=== PATIENT | male | born 1995 | race American Indian/Alaskan Native ===

== ENCOUNTER 2016-08-17 18:22 | Emergency (ER) | payer SELFPAY ==
[2016-08-17 20:00] VITALS: BP 137/76
--- NOTE | 2016-08-18 04:35 | XRay Report ---
FINAL REPORT PROCEDURE: XR ANKLE 2V LT TECHNIQUE: LEFT ankle radiographs, AP and lateral views. HISTORY: LEFT ANKLE PAIN COMPARISON: No prior studies are available for comparison. FINDINGS: Fracture (s) and/or Dislocation(s): None. Alignment: Normal. Joint space(s): Normal. Soft tissues: Normal. Bone mineralization: Normal. Foreign bodies: Normal. Calcaneal spurring: Normal. IMPRESSION: Normal Examination .
[2016-08-18] MEDS ORDERED: NORCO 5/325 PO ONE (06:00)
--- NOTE | 2016-08-18 06:01 | Emergency Department Report ---
ED Lower Extremity HPI - General Chief Complaint: Extremity Injury, Lower Stated Complaint: BROKEN ANKLE Source: patient Mode of arrival: Wheelchair Limitations: No Limitations - History of Present Illness Initial Comments: 21-year-old male past medical history none presents with complaint of left ankle and foot pain. Patient states that yesterday on August 16 he stepped awkwardly on his left ankle, inversion injury as per patient. Denies any other injuries. States that his left ankle and foot have become swollen since. Visible Swelling at distal left ankle. Complaint: ankle injury, foot injury Onset/Timin -: days(s) Injury: Ankle: Left (left ankle pain and swelling) Type of Injury: inversion Severity: moderate Severity scale (0 -10): 5 Associated Symptoms: swelling, able to partially bear weight - Related Data Previous Rx's Medication Instructions Recorded Last Taken Type Naproxen [Naprosyn] 500 mg PO BID PRN #20 tablet 08/18/16 Unknown Rx Allergies Allergy/AdvReac Type Severity Reaction Status Date / Time Iodine and Iodide Containing Allergy Angioedema Verified 08/17/16 19:54 Produc shellfish derived Allergy Angioedema Verified 08/17/16 19:54 ED Review of Systems ROS: Stated complaint: BROKEN ANKLE Other details as noted in HPI Constitutional: denies: chills, fever Eyes: denies: eye pain, eye discharge, vision change ENT: denies: ear pain, throat pain Respiratory: denies: cough, shortness of breath, wheezing Cardiovascular: denies: chest pain, palpitations Endocrine: no symptoms reported Gastrointestinal: denies: abdominal pain, nausea, diarrhea Genitourinary: denies: urgency, dysuria Musculoskeletal: denies: back pain, joint swelling, arthralgia Skin: denies: rash, lesions Neurological: denies: headache, weakness, paresthesias Psychiatric: denies: anxiety, depression Hematological/Lymphatic: denies: easy bleeding, easy bruising ED Past Medical Hx - Past Medical History Previous Medical History?: No - Surgical History Past Surgical History?: No - Social History Smoking Status: Current Every Day Smoker Substance Use Type: None - Medications Home Medications: Home Medications Medication Instructions Recorded Confirmed Last Taken Type Naproxen [Naprosyn] 500 mg PO BID PRN #20 tablet 08/18/16 Unknown Rx ED Physical Exam - General Limitations: No Limitations General appearance: alert, in no apparent distress - Head Head exam: Present: atraumatic, normocephalic - Eye Eye exam: Present: normal appearance, PERRL, EOMI - ENT ENT exam: Present: mucous membranes moist - Neck Neck exam: Present: normal inspection - Respiratory Respiratory exam: Present: normal lung sounds bilaterally. Absent: respiratory distress - Cardiovascular Cardiovascular Exam: Present: regular rate, normal rhythm. Absent: systolic murmur, diastolic murmur, rubs, gallop - GI/Abdominal GI/Abdominal exam: Present: soft, normal bowel sounds - Rectal Rectal exam: Present: deferred - Extremities Exam Extremities exam: Present: normal inspection - Expanded Lower Extremity Exam Left Upper Leg exam: Present: normal inspection, full ROM Knee exam: Present: normal inspection, full ROM Lower Leg exam: Present: normal inspection, full ROM Ankle exam: Present: normal inspection, full ROM (ankle flexion and extension intact), tenderness (tenderness to palpation medial malleolus left ankle), swelling (swelling anterior ankle) Foot/Toe exam: Present: normal inspection, full ROM, tenderness (tenderness on the dorsal aspect of foot) Neuro vascular tendon exam: Present: no vascular compromise Gait: Positive: antalgic 1 - Swelling here - Back Exam Back exam: Present: normal inspection - Neurological Exam Neurological exam: Present: alert, oriented X3, CN II-XII intact, abnormal gait (antalgic gait) - Psychiatric Psychiatric exam: Present: normal affect, normal mood - Skin Skin exam: Present: warm, dry, intact, normal color. Absent: rash ED Course Vital Signs 08/17/16 19:55 Temperature 98.8 F Pulse Rate 80 Respiratory 20 Rate Blood Pressure 137/76 O2 Sat by Pulse 100 Oximetry ED Lower Extremity MDM - Medical Decision Making A/P: Left ankle/foot sprain 1-x-rays of ankle and foot show no fractures 2-naproxen when necessary 3-follow-up with orthopedics 4- ankle air stirrup splint, Matti wraps, RCE therapy, crutches, weight bearing as tolerated Critical care attestation.: If time is entered above; I have spent that time in minutes in the direct care of this critically ill patient, excluding procedure time. ED Disposition Clinical Impression: Ankle sprain Qualifiers: Encounter type: initial encounter Involved ligament of ankle: tibiofibular ligament Laterality: left Qualified Code(s): S93.432A - Sprain of tibiofibular ligament of left ankle, initial encounter Disposition: TO HOME OR SELFCARE Is pt being admited?: No Does the pt Need Aspirin: No Condition: Stable Instructions: Ankle Sprain (ED), Ankle Stirrup Splint (ED), Crutch Instructions (ED) Prescriptions: Naproxen [Naprosyn] 500 mg PO BID PRN #20 tablet PRN Reason: Pain Referrals: JOHANNY AYALA MD [Staff Physician] - 3-5 Days Forms: Work/School Release Form(ED) Time of Disposition: 06:57
--- NOTE | 2016-08-18 06:35 | XRay Report ---
FINAL REPORT PROCEDURE: XR FOOT 3 LT TECHNIQUE: LEFT foot radiographs, AP, lateral, and oblique views. CPT 10582 HISTORY: foot pain post fall COMPARISON: No prior studies are available for comparison. FINDINGS: Fracture (s) and/or Dislocation(s): None . Alignment: Normal . Joint space(s): Normal . Soft tissues: Normal . Bone mineralization: Normal . Foreign bodies: None . Calcaneal spurring: None . IMPRESSION: Normal Examination .
== END 2016-08-18 07:00 | disposition home or self-care (01) ==
LOC: ED 18:22
DX: S93.432A Sprain of tibiofibular ligament of left ankle, initial encounter (principal); F17.200 Nicotine dependence, unspecified, uncomplicated; X50.1XXA Overexertion from prolonged static or awkward postures, initial encounter; Y93.89 Activity, other specified; Y99.8 Other external cause status; Y92.89 Other specified places as the place of occurrence of the external cause; Z91.013 Allergy to seafood; Z88.8 Allergy status to other drugs, medicaments and biological substances

== ENCOUNTER 2016-09-16 20:53 | Emergency (ER) | payer SELFPAY ==
[2016-09-16] MEDS ORDERED: TYLENOL ONE (21:06)
[2016-09-16] MEDS ORDERED: TYLENOL PO ONE (21:13)
[2016-09-16 21:38] VITALS: BP 134/87
--- NOTE | 2016-09-16 21:54 | XRay Report ---
FINAL REPORT PROCEDURE: XR HAND 3+V RT TECHNIQUE: RIGHT hand radiographs, AP, lateral, and oblique views. CPT 36089-QO HISTORY: Impact, hand Pain Swelling COMPARISON: No prior studies are available for comparison. FINDINGS: Fracture (s) and/or Dislocation(s): ACUTE COMMINUTED NONDISPLACED FRACTURE IS NOTED INVOLVING THE BASE OF 5TH METACARPAL WITHOUT SIGNIFICANT DISPLACEMENT. Alignment: Normal . Joint space(s): Normal . Soft tissues: Normal . Bone mineralization: Normal . Foreign bodies: None . IMPRESSION: ACUTE FRACTURE BASE OF 5TH METACARPAL.
--- NOTE | 2016-09-17 00:45 | Emergency Department Report ---
HPI - General Chief Complaint: Extremity Injury, Upper Time Seen by Provider: 09/17/16 00:34 - HPI HPI: 21-year-old male presents to ED complaining of right hand pain and swelling times today. Patient states he was playing basketball earlier and swelling is hand which hit the fence and started experiencing some pain afterwards. He denies a sensation or any other injuries or any active bleeding ED Past Medical Hx - Past Medical History Previous Medical History?: No - Surgical History Past Surgical History?: No - Social History Smoking Status: Never Smoker Substance Use Type: None - Medications Home Medications: Home Medications Medication Instructions Recorded Confirmed Last Taken Type Naproxen [Naprosyn] 500 mg PO BID PRN #20 tablet 08/18/16 Unknown Rx Cyclobenzaprine [Flexeril] 10 mg PO QHS #12 tablet 09/17/16 Unknown Rx Ibuprofen [Motrin 800 MG tab] 800 mg PO TID #30 tablet 09/17/16 Unknown Rx ED Review of Systems ROS: Stated complaint: RT HAND POSS BROKEN Other details as noted in HPI Constitutional: denies: chills, fever Eyes: denies: eye pain, eye discharge, vision change ENT: denies: ear pain, throat pain Respiratory: denies: cough, shortness of breath, wheezing Cardiovascular: denies: chest pain, palpitations Endocrine: no symptoms reported Gastrointestinal: denies: abdominal pain, nausea, diarrhea Genitourinary: denies: urgency, dysuria Musculoskeletal: denies: back pain, joint swelling, arthralgia Skin: denies: rash, lesions Neurological: denies: headache, weakness, paresthesias Psychiatric: denies: anxiety, depression Hematological/Lymphatic: denies: easy bleeding, easy bruising Physical Exam - Physical Exam Vital Signs: Vital Signs 09/16/16 20:55 Temperature 98.1 F Pulse Rate 99 H Respiratory 18 Rate Blood Pressure 134/87 [Right] O2 Sat by Pulse 98 Oximetry Physical Exam: GENERAL: Alert and oriented x3, no apparent distress, Normal Gait, atraumatic. HEAD: Head is normocephalic and a-traumatic. EYES: Extra ocular muscles are intact. Pupils are equal, round, and reactive to light and accommodation. NECK: Supple. Non edematous, No lymphadenopathy or thyromegaly. No C-spine tenderness LUNGS: Symetrical with respiration, No wheezing, no rales or crackles, CTAB. HEART: S1, S2 present, regular rate and rhythm without murmur, no rubs, no gallops. Non tender to palpation EXTREMITIES/MUSCULOSKELETAL: No cyanosis, clubbing, rash, lesions or edema. Full ROM bilaterally. UE Pulses 2+ bilaterally. UE 5+ strength bilaterally, right hand edema at the fourth and fifth metacarpal bones, tender to palpation, no active bleeding. NEUROLOGIC: The patient is cooperative with no focal neurologic deficits.Normal speech.. Normal sensation in bilateral upper extremities, No loss of sensation, PSYCHIATRIC: Mood is congruent with affect, denies suicidal or homicidal ideations. SKIN: Warm and dry, No lesions, No ulceration or induration present. ED Course Vital Signs 09/16/16 20:55 Temperature 98.1 F Pulse Rate 99 H Respiratory 18 Rate Blood Pressure 134/87 [Right] O2 Sat by Pulse 98 Oximetry ED Medical Decision Making - Radiology Data Radiology results: report reviewed, image reviewed FINAL REPORT PROCEDURE: XR HAND 3+V RT TECHNIQUE: RIGHT hand radiographs, AP, lateral, and oblique views. CPT 82000-HS HISTORY: Impact, hand Pain Swelling COMPARISON: No prior studies are available for comparison. FINDINGS: Fracture (s) and/or Dislocation(s): ACUTE COMMINUTED NONDISPLACED FRACTURE IS NOTED INVOLVING THE BASE OF 5TH METACARPAL WITHOUT SIGNIFICANT DISPLACEMENT. Alignment: Normal . Joint space(s): Normal . Soft tissues: Normal . Bone mineralization: Normal . Foreign bodies: None . IMPRESSION: ACUTE FRACTURE BASE OF 5TH METACARPAL. Transcribed By: [facility] [place] Dictated By: DANNIE SHARPE Electronically Authenticated By: DANNIE SHARPE Signed Date/Time: 09/16/16 7470 - Medical Decision Making 21-year-old male presents with fracture of the fifth metatarsal or carpal bone ED course: Hand x-ray ordered. X-ray shows diagnosis Discussed this findings with the patient. Discussed the patient will need to be in splint until he follows up with orthopedic doctor Discussed follow-up. Dr. Dr. Chavez in 3 days Discuss with the patient in the fracture secondary from 4-8 weeks to heal. Discussed the keep ice compress and elevated Vital signs are normal patient is in no acute distress sign Ulna gutter splint is applied to the hand Critical care attestation.: If time is entered above; I have spent that time in minutes in the direct care of this critically ill patient, excluding procedure time. ED Disposition Clinical Impression: Fracture of fifth metacarpal bone Qualifiers: Encounter type: initial encounter Fracture type: closed Metacarpal location: base Fracture alignment: nondisplaced Laterality: right Qualified Code(s): S62.346A - Nondisplaced fracture of base of fifth metacarpal bone, right hand, initial encounter for closed fracture Disposition: TO HOME OR SELFCARE Is pt being admited?: No Does the pt Need Aspirin: No Condition: Stable Instructions: Hand Fracture (ED), Finger Dislocation (ED), Boxer Fracture (ED) Additional Instructions: Follow-up with orthopedic doctor in 3-5 days Prescriptions: Cyclobenzaprine [Flexeril] 10 mg PO QHS #12 tablet Ibuprofen [Motrin 800 MG tab] 800 mg PO TID #30 tablet Referrals: PRIMARY CAREMD [Primary Care Provider] - 3-5 Days JOHANNY CHAVEZ MD [Staff Physician] - 3-5 Days Forms: Accompanied Note, Work/School Release Form(ED) Time of Disposition: 01:33
[2016-09-17] MEDS ORDERED: MOTRIN PO ONE (01:07)
== END 2016-09-17 01:44 | disposition home or self-care (01) ==
LOC: ED 20:53
DX: S62.346A Nondisplaced fracture of base of fifth metacarpal bone, right hand, initial encounter for closed fracture (principal); W21.05XA Struck by basketball, initial encounter; Y93.9 Activity, unspecified; Y92.9 Unspecified place or not applicable; Y99.9 Unspecified external cause status

== ENCOUNTER 2016-11-03 00:58 | Emergency (ER) | payer SELFPAY ==
[2016-11-03 01:50] LABS: Basophils % (Auto) 0.9 % (0.0-1.8); Hematocrit 39.4 % (35.5-45.6); Hemoglobin 13.5 gm/dl (11.8-15.2); Mean Corpuscular HGB Conc 34 % (32-34); Mean Corpuscular Hemoglobin 30 pg (28-32); Mean Corpuscular Volume 89 fl (84-94); Platelet Count 204 K/mm3 (140-440); Red Blood Count 4.46 M/mm3 (3.65-5.03); Red Cell Distribution Width 13.5 % (13.2-15.2); White Blood Count 7.6 K/mm3 (4.5-11.0)
[2016-11-03 02:10] LABS: Anion Gap 18 mmol/L; BUN/Creatinine Ratio 17.77; Blood Urea Nitrogen 16 mg/dL (9-20); Calcium 8.7 mg/dL (8.4-10.2); Carbon Dioxide 24 mmol/L (22-30); Chloride 99.4 mmol/L (98-107); Glucose 81 mg/dL (75-100); Potassium 3.6 mmol/L (3.6-5.0); Sodium 138 mmol/L (137-145)
--- NOTE | 2016-11-03 07:46 | XRay Report ---
ROUTINE CHEST, TWO VIEWS: HISTORY: Right breast pain, chest pain. The trachea, heart, mediastinal contour, lung marion and bony thorax are unremarkable. IMPRESSION: Unremarkable chest x-ray.
--- NOTE | 2016-11-03 07:51 | Emergency Department Report ---
ED General Adult HPI - General Chief complaint: Pain General Stated complaint: LUMP ON CHEST Time Seen by Provider: 11/03/16 07:46 Source: patient Mode of arrival: Ambulatory Limitations: No Limitations - History of Present Illness Initial comments: This is a 21-year-old male nontoxic, well nourished in appearance, no acute signs of distress presents to the ED complaining of right breast region lump 1 week. Patient stated it is getting worse. Patient stated it is tender to touch. He denies any pus or drainage. Based denies any trauma to the region. Patient denies any chest pain, shortness of breath, numbness, tingling, fever, chills, nausea or vomiting. Patient allergies to iodine and shellfish. Denies past medical history. MD Complaint: right breast lump -: Gradual, week(s) (1) Location: chest (right-sided region) Radiation: non-radiation Severity scale (0 -10): 7 Quality: aching Consistency: constant Improves with: none Worsens with: none Associated Symptoms: denies other symptoms. denies: confusion, chest pain, cough, diaphoresis, fever/chills, headaches, loss of appetite, malaise, nausea/ vomiting, rash, seizure, shortness of breath, syncope, weakness Treatments Prior to Arrival: none - Related Data Previous Rx's Medication Instructions Recorded Last Taken Type Ibuprofen [Motrin 600 MG tab] 600 mg PO Q8H PRN #30 tablet 11/03/16 Unknown Rx Sulfamethoxazole/Trimethoprim 1 each PO BID #14 tablet 11/03/16 Unknown Rx [Bactrim DS TAB] Allergies Allergy/AdvReac Type Severity Reaction Status Date / Time Iodine and Iodide Containing Allergy Angioedema Verified 11/03/16 06:51 Produc shellfish derived Allergy Angioedema Verified 11/03/16 06:51 ED Review of Systems ROS: Stated complaint: LUMP ON CHEST Other details as noted in HPI Constitutional: denies: chills, fever Eyes: denies: eye pain, eye discharge, vision change ENT: denies: ear pain, throat pain Respiratory: denies: cough, shortness of breath, wheezing Cardiovascular: denies: chest pain, palpitations Endocrine: no symptoms reported Gastrointestinal: denies: abdominal pain, nausea, diarrhea Genitourinary: denies: urgency, dysuria Musculoskeletal: denies: back pain, joint swelling, arthralgia Skin: denies: rash, lesions Neurological: denies: headache, weakness, paresthesias Psychiatric: denies: anxiety, depression Hematological/Lymphatic: denies: easy bleeding, easy bruising ED Past Medical Hx - Past Medical History Previous Medical History?: No - Surgical History Past Surgical History?: No - Social History Smoking Status: Current Every Day Smoker Substance Use Type: None - Medications Home Medications: Home Medications Medication Instructions Recorded Confirmed Last Taken Type Ibuprofen [Motrin 600 MG tab] 600 mg PO Q8H PRN #30 tablet 11/03/16 Unknown Rx Sulfamethoxazole/Trimethoprim 1 each PO BID #14 tablet 11/03/16 Unknown Rx [Bactrim DS TAB] ED Physical Exam - General Limitations: No Limitations General appearance: alert, in no apparent distress - Head Head exam: Present: atraumatic, normocephalic, normal inspection - Eye Eye exam: Present: normal appearance, PERRL, EOMI. Absent: scleral icterus, conjunctival injection, nystagmus, periorbital swelling, periorbital tenderness Pupils: Present: normal accommodation - ENT ENT exam: Present: normal exam, normal orophraynx, mucous membranes moist, TM's normal bilaterally, normal external ear exam - Neck Neck exam: Present: normal inspection, full ROM. Absent: tenderness, meningismus, lymphadenopathy, thyromegaly - Respiratory Respiratory exam: Present: normal lung sounds bilaterally. Absent: respiratory distress, wheezes, rales, rhonchi, stridor, chest wall tenderness, accessory muscle use, decreased breath sounds, prolonged expiratory - Cardiovascular Cardiovascular Exam: Present: regular rate, normal rhythm, normal heart sounds. Absent: systolic murmur, diastolic murmur, rubs, gallop - GI/Abdominal GI/Abdominal exam: Present: soft, normal bowel sounds. Absent: distended, tenderness, guarding, rebound, rigid, diminished bowel sounds - Rectal Rectal exam: Present: deferred - Extremities Exam Extremities exam: Present: normal inspection, full ROM, normal capillary refill. Absent: tenderness, pedal edema, joint swelling, calf tenderness - Back Exam Back exam: Present: normal inspection, full ROM. Absent: tenderness, CVA tenderness (R), CVA tenderness (L), muscle spasm, paraspinal tenderness, vertebral tenderness, rash noted - Neurological Exam Neurological exam: Present: alert, oriented X3, CN II-XII intact, normal gait, reflexes normal - Psychiatric Psychiatric exam: Present: normal affect, normal mood - Skin Skin exam: Present: warm, dry, intact, normal color. Absent: rash - Other Other exam information: 3 cm x 2 cm circular nodular lump to her right breast region. Tender to touch. Nonmobile. With surrounding erythema and cellulitis is noted. No pus or drainage. No induration. No fluctuance. ED Course Vital Signs 11/03/16 11/03/16 11/03/16 01:00 01:33 06:25 Temperature 98.4 F 98.4 F Pulse Rate 91 H 70 Respiratory 18 18 16 Rate Blood Pressure 135/77 135/77 Blood Pressure 120/63 [Right] O2 Sat by Pulse 98 100 Oximetry 11/03/16 11:00 Temperature Pulse Rate 73 Respiratory Rate Blood Pressure 120/67 Blood Pressure [Right] O2 Sat by Pulse 100 Oximetry - Reevaluation(s) Reevaluation #1: 11/03/16 07:51 Patient is speaking in full sentences with no signs of distress noted. ED Medical Decision Making - Lab Data Result diagrams: 11/03/16 01:40 11/03/16 01:40 - Medical Decision Making this is a 21-year-old male that presents with right-sided chest boil. The patient was examined by myself patient is stable. Ultrasound of the right sided chest as an obtained and indicates that it is likely a small abscess. Upon examination the abscess is tender to touch but there is no induration or fluctuance was noted. There is slight swelling with erythema and it is warm to touch. No postural changes noted. Patient be treated with Bactrim at discharge and patient was instructed to return to a primary care doctor in 3-4 weeks for repeat ultrasound after medical treatment. Patient is also started to follow-up with a primary care doctor in 3-5 days or if symptoms worsen and continue return to emergency room as soon as possible. At time time of discharge , the patient does not seem toxic or ill in appearance. No acute signs of distress noted. Patient agrees to discharge treatment plan of care. No further questions noted by the patient. CBC and BP has been obtained with normal results Critical care attestation.: If time is entered above; I have spent that time in minutes in the direct care of this critically ill patient, excluding procedure time. ED Disposition Clinical Impression: Boil Disposition: DC-01 TO HOME OR SELFCARE Is pt being admited?: No Does the pt Need Aspirin: No Condition: Stable Instructions: Sulfamethoxazole/Trimethoprim (By mouth), Ibuprofen (By mouth) Additional Instructions: Follow-up with a primary care doctor in 3-5 days or if symptoms worsen and continue return to emergency room as soon as possible. You also need a repeat ultrasound in 3-4 weeks after antibiotic treatment. Prescriptions: Ibuprofen [Motrin 600 MG tab] 600 mg PO Q8H PRN #30 tablet PRN Reason: Pain Sulfamethoxazole/Trimethoprim [Bactrim DS TAB] 1 each PO BID #14 tablet Referrals: PRIMARY CAREMD [Primary Care Provider] - 3-5 Days JAZZMINE CHARLTON MD [Staff Physician] - 3-5 Days [facility] [Outside] - 3-5 Days [facility] [Outside] - 3-5 Days Forms: Work/School Release Form(ED)
--- NOTE | 2016-11-03 10:23 | Ultrasound Report ---
Targeted right breast ultrasound. History: 21-year-old male who presents with tender painful right breast lump. Findings: There is a complex mass at the 10:00 position of the right breast 7 cm from the nipple. This correlates to the location of the palpable lesion. The mass measures 1.0 x 1.1 cm. There is increased through-transmission with several focal sonolucent areas. The margins are slightly indistinct. Impression: Findings above most likely represent a small abscess. BI-RADS code: 3. Recommendation: Ultrasound guided aspiration may be useful. If this is not performed, a repeat sonogram is recommended in 3-4 weeks after appropriate management.
[2016-11-03 11:03] VITALS: BP 120/67
== END 2016-11-03 11:52 | disposition home or self-care (01) ==
LOC: ED 00:58
DX: N63 Unspecified lump in breast (principal); F17.200 Nicotine dependence, unspecified, uncomplicated
CPT/HCPCS: 36415; 71020; 80048; 85025